=== PATIENT | female | born 1975 | race Caucasian/White ===

== ENCOUNTER 2017-06-25 14:34 | Emergency (ER) | payer MEDICAID ==
[~2017-06-25] VITALS: Ht 162.6 cm; Wt 103.4 kg
[2017-06-25 14:43] VITALS: BP_SYST 136
[2017-06-25 15:22] VITALS: BP_SYST 136
== END 2017-06-25 15:22 | disposition home or self-care (01) ==
LOC: SED 14:34
DX: J01.00 Acute maxillary sinusitis, unspecified (principal); R03.0 Elevated blood-pressure reading, without diagnosis of hypertension; F41.9 Anxiety disorder, unspecified
CPT/HCPCS: 99283

== ENCOUNTER 2017-12-08 13:43 | Emergency (ER) | payer MEDICAID ==
[~2017-12-08] VITALS: Ht 162.6 cm; Wt 99.8 kg
[2017-12-08 13:43] VITALS: BP_SYST 155
[2017-12-08] MEDS ORDERED: SULFAMETHOXAZOLE/TRIMETHOPR DS 1 TABLET PO ONE (14:00)
[2017-12-08] MEDS ORDERED: LIDOCAINE/EPI 2% 1:100000 20 ML VIAL INJ ONE (14:00)
[2017-12-08] MEDS ORDERED: CEPHALEXIN 500 MG CAPSULE PO ONE (14:00)
[2017-12-08] MEDS ORDERED: IBUPROFEN 800 MG TABLET PO ONE (14:00)
[2017-12-08] MEDS ORDERED: DIPH-TET-PERTUS Vaccine 0.5 ML VIAL (ADACEL) I.M. ONE ×2 (14:23→14:30)
[2017-12-08 14:48] VITALS: BP_SYST 135
== END 2017-12-08 14:46 | disposition home or self-care (01) ==
LOC: SED 13:43
DX: L02.214 Cutaneous abscess of groin (principal); F41.9 Anxiety disorder, unspecified; I10 Essential (primary) hypertension; Z90.49 Acquired absence of other specified parts of digestive tract
CPT/HCPCS: 90715; 99284

== ENCOUNTER 2024-03-02 19:32 | Emergency (ER) | payer MEDICAID ==
[~2024-03-02] VITALS: Ht 162.6 cm; Wt 104.3 kg
[2024-03-02 21:14] LABS: BASOPHILS % (AUTO) 0.5 % (0.0-2.0); EOSINOPHILS # (AUTO) 0.5 K/uL (0.0-0.4); EOSINOPHILS % (AUTO) 5.9 % (0.0-4.0); HEMOGLOBIN 12.4 g/dL (12.0-16.0); MEAN CORPUSCULAR HEMOGLOBIN 27 pg (27-31); MEAN CORPUSCULAR HGB CONC 33 % (32-36); MEAN CORPUSCULAR VOLUME 82 fL (79.0-98.0); MONOCYTES # (AUTO) 0.5 K/uL (0.0-1.0); MONOCYTES % (AUTO) 6.6 % (1.7-9.3); NEUTROPHILS # (AUTO) 5.1 K/uL (1.8-7.7); PLATELET COUNT (AUTO) 349 K/uL (130-430); RED BLOOD CELL COUNT(AUTO) 4.62 MIL/uL (4.2-6.2); WHITE BLOOD COUNT (AUTO) 8.1 K/uL (4.8-10.8)
[2024-03-02 21:23] VITALS: BP_SYST 135; PULSE 78; RESP 20; TEMP 98.2; O2SAT 98
[2024-03-02 21:31] LABS: ALBUMIN 3.5 g/dL (3.4-4.8); BILIRUBIN,DIRECT 0.1 mg/dL (0.0-0.3); CALCIUM 8.7 mg/dL (8.4-11.0); CREATININE 0.82 mg/dL (0.55-1.30); POTASSIUM 3.4 mmol/L (3.5-5.1); TOTAL BILIRUBIN 0.3 mg/dL (0.0-1.0); TOTAL PROTEIN, SERUM 7.5 g/dL (6.4-8.3)
[2024-03-02 22:22] VITALS: BP_SYST 133; PULSE 80; RESP 18; O2SAT 97
== END 2024-03-02 22:22 | disposition home or self-care (01) ==
LOC: SED 19:32
DX: E86.0 Dehydration (principal); R51.9 Headache, unspecified; I10 Essential (primary) hypertension; F41.9 Anxiety disorder, unspecified
CPT/HCPCS: 36415; 80048; 80076; 85025; 99283